=== PATIENT | male | born 1965 | race Caucasian/White ===

== ENCOUNTER 2018-04-23 21:02 | Emergency (ER) | payer SELFPAY ==
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
[2018-04-23 21:56] LABS: CHLORIDE,CL 103 mmol/L (98-107); SODIUM,NA 140 mmol/L (136-148)
[2018-04-23 21:59] LABS: ACETAMINOPHEN < 2.0 ug/mL
[2018-04-23] MEDS ORDERED: cefTRIAXone 2 GM in Premix Bag 1 BAG IV ONE (22:15)
[2018-04-23] MEDS ORDERED: Diphtheria,Pertussis(Acell),Tetanus Vaccine 0.5 ML Syringe IM ONE (22:16)
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
== END 2018-04-23 23:00 ==
LOC: MW.ED 21:02
DX: S01.80XA Unspecified open wound of other part of head, initial encounter (principal); X74.01XA Intentional self-harm by airgun, initial encounter; F32.9 Major depressive disorder, single episode, unspecified; F19.10 Other psychoactive substance abuse, uncomplicated
CPT/HCPCS: 36415; 70450; 80053; 80305; 81001; 83735; 84443; 85025; 90471; 90715; 93005; 96365; 96368; 99285; G0480; J0690; J0696; J7050

== ENCOUNTER 2020-01-21 22:13 | Emergency (ER) | payer MEDICAID ==
[2020-01-21] MEDS ORDERED: Dexamethasone 10 MG/ML SDV IM ONE (22:35)
[2020-01-21] MEDS ORDERED: Ketorolac 15 MG/ML SDV IM ONE (22:35)
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
--- NOTE | 2020-01-21 23:23 | CR ---
INDICATION: Right pain, back pain, chronic TECHNIQUE: Lumbar spine radiograph 3 views COMPARISON: None FINDINGS: Bone: No acute fractures or aggressive bone lesions are identified. Alignment is normal. Large marginal endplate osteophytes are present at L1 through L3. Disc: See above. Severe bilateral facet osteoarthritis is present at L5-S1. Soft tissue: Unremarkable. No radiopaque foreign bodies are seen. IMPRESSION: 1. No acute osseous injuries or abnormalities are noted. Dictated by Eliu Benavidez MD @ 01/21/2020 11:22:58 PM Dictated by: Eliu Benavidez MD @ 01/21/2020 23:23:07 (Electronically Signed)
--- NOTE | 2020-01-21 23:26 | CR ---
INDICATION: Right pelvic and hip pain, back pain, chronic TECHNIQUE: Pelvis radiograph, Hip radiograph 4 views right COMPARISON: None FINDINGS: Bone: No acute fractures or aggressive bone lesions are identified. Joint: Mild bilateral hip osteoarthritis noted. The visualized sacroiliac joints are unremarkable in appearance. The pubic symphysis is normal in appearance. Soft tissue: Unremarkable. The visualized bowel gas pattern of the pelvis is unremarkable in appearance. No radiopaque foreign bodies are seen. IMPRESSION: 1. No acute osseous injuries or abnormalities are noted. 2. Mild bilateral hip osteoarthritis noted. Dictated by: Eliu Benavidez MD @ 01/21/2020 23:24:46 (Electronically Signed)
[2020-01-22] MEDS ORDERED: Acetaminophen/HYDROcodone 325-5 MG Tab PO ONE (00:37)
== END 2020-01-22 01:20 | disposition home or self-care (01) ==
LOC: MW.ED 22:13
DX: M54.16 Radiculopathy, lumbar region (principal)
CPT/HCPCS: 72100; 73502; 96372; 99283; A9270; J1100; J1885

== ENCOUNTER 2020-01-26 18:21 | Emergency (ER) | payer MEDICAID ==
[2020-01-26] MEDS ORDERED: HYDROmorphone 1 MG/ML Syringe IVPUSH ONE (18:54)
[2020-01-26] MEDS ORDERED: Ondansetron 4 MG/2 ML SDV IVPUSH ONE (18:54)
[2020-01-26] MEDS ORDERED: methylPREDNISolone Sodium Succinate 125 MG/2 ML SDV IVPUSH ONE (18:54)
--- NOTE | 2020-01-26 18:54 | EDM.PDOC ---
ED HPI GENERAL MEDICAL PROBLEM - General Chief Complaint: Back Pain or Injury Stated Complaint: BACK PAIN Time Seen by Provider: 01/26/20 18:45 Source of Information: Reports: Patient History Limitations: Reports: No Limitations - History of Present Illness INITIAL COMMENTS - FREE TEXT/NARRATIVE: HISTORY AND PHYSICAL: History of present illness: Patient is a 54-year-old male who presents to the emergency room with complaints of chronic back pain. Patient has been suffering for several years with chronic lumbar back pain, but seems worse within the last month. He has had full work- ups including MRI and x-ray. He was recently seen in our emergency department and was prescribed Flexeril and ibuprofen, states that this medication has not helped. He did receive some steroids while he was in the emergency department and states he felt well enough to be discharged home at that time. He has an appointment with the Dr Lopez, the pain coordinator, on 02/11/2020 - but "can't wait that long" for relief. He states the pain is not tolerable and will occasionally send "jolts" of pain down both legs and down both arms. He denies any new injury, trauma or falls. He denies any neurological symptoms such as urinary or fecal incontinence, numbness/tingling of the distal extremities, saddle paresthesia, weakness or difficulty with ambulation. Patient denies any fever, chills, headache, change in vision, syncope or near syncope. Denies any chest pain, back pain, shortness of breath or cough. Denies any abdominal pain, nausea, vomiting, diarrhea, constipation or dysuria. Has not noted any blood in urine or stool. Patient has been eating and drinking appropriately. Review of systems: As per history of present illness and below otherwise all systems reviewed and negative. Past medical history: As per history of present illness and as reviewed below otherwise noncontributory. Surgical history: As per history of present illness and as reviewed below otherwise noncontributory. Social history: See social history for further information Family history: As per history of present illness and as reviewed below otherwise noncontributory. Physical exam: General: Chronically ill appearing 54-year-old male. Alert and oriented. Anxious but nontoxic appearing and in no acute distress. HEENT: Atraumatic, normocephalic, pupils equal and reactive bilaterally, negative for conjunctival pallor or scleral icterus, mucous membranes moist, TMs normal bilaterally, throat clear, neck supple, nontender, trachea midline. No drooling or trismus noted. No meningeal signs. No hot potato voice noted. Lungs: Clear to auscultation, breath sounds equal bilaterally, chest nontender. Heart: S1S2, regular rate and rhythm without overt murmur Abdomen: Soft, nondistended, nontender. Negative for masses or hepatosplenomegaly. Negative for costovertebral tenderness. Pelvis: Stable nontender. Genitourinary: Deferred. Rectal: Deferred. C-spine/Back: No pinpoint vertebral tenderness upon palpation. No crepitus, step-offs or obvious deformities. Patient does have lumbar back discomfort with the paraspinous muscles early. Patient is ambulatory into the emergency room without difficulty or deficit. Able to rock back on heels and walk on toes. Denies any urinary or fecal incontinence. Denies any numbness, tingling or saddle paresthesia. No concerns of serious infection, fracture or cord compression, or cauda equina syndrome. Deep tendon reflexes brisk bilaterally. Skin: Intact, warm, dry. No lesions or rashes noted. Extremities: Atraumatic, moves all extremities per self without difficulty or deficits, negative for cords or calf pain. Neurovascular unremarkable. Neuro: Awake, alert, oriented. Cranial nerves II through XII unremarkable. Cerebellum unremarkable. Motor and sensory unremarkable throughout. Exam nonfocal. Notes: 01/01/20 recent MRI showing multilevel DJD and DDD. Lumbar x-ray on 01/21/20 shows diffuse arthritis. He does have an upcoming pain management appointment and scheduled physical therapy for next month. Patient declines wanting any diagnostics. He states the pain is not new or worse than before, but not managed with the medications he is taking. On secondary reevaluation is within normal limits, no neurological findings, reflexes brisk and intact. Patient's pain is much improved after the IV medications. We discussed signs and symptoms that would prompt him to come back to the emergency room. Encouraged him to call Dr. Carrasco's office to see if he can get his appointment expedited. Medication, follow-up and supportive care measures were reviewed and discussed. Voices understanding and is agreeable to plan of care. Denies any further questions or concerns at this time. Diagnostics: None Therapeutics: Dilaudid, Zofran, IV fluids Prescription: Percocet (#30) Impression: Chronic back pain Encounter for pain management Plan: 1. The medication you received today does cause drowsiness, so do not drive for the remaining day 2. When resting please lay on a flat firm surface. Limit your immobility to prevent muscle stiffness. Get up to ambulate/move around/gentle stretching multiple times throughout the day. May alternate heat and ice to the painful areas 3. Take your home medications as directed. Percocet is a narcotic, this medication may cause drowsiness a do not take it will driving her needing to be functioning outside of the house. 4. Please follow-up with your primary care provider and keep your appointment with Dr Campo for 02/11/2020. It would be beneficial to call our office and see if you can get an expedited appointment as you have been seen in the emergency room twice this month. 5. Return to the ED as needed and as discussed. Definitive disposition and diagnosis as appropriate pending reevaluation and review of above. lower back Pain Score (Numeric/FACES): 9 - Related Data Allergies Allergy/AdvReac Type Severity Reaction Status Date / Time No Known Allergies Allergy Verified 01/26/20 18:44 Home Meds: Home Meds Cyclobenzaprine [Flexeril] 10 mg PO TID PRN #15 tab 01/22/20 [Rx] Ibuprofen 600 mg PO Q8H #30 tablet 01/22/20 [Rx] predniSONE [Prednisone] 60 mg PO DAILY 5 Days #15 tablet 01/22/20 [Rx] oxyCODONE HCl/Acetaminophen [Percocet 7.5-325 mg Tablet] 1 each PO Q6HR PRN #30 tablet 01/26/20 [Rx] Past Medical History HEENT History: Reports: None Cardiovascular History: Reports: None Respiratory History: Reports: None Gastrointestinal History: Reports: None Genitourinary History: Reports: None Neurological History: Reports: None Psychiatric History: Reports: None Endocrine/Metabolic History: Reports: None Hematologic History: Reports: None Immunologic History: Reports: None Oncologic (Cancer) History: Reports: None Dermatologic History: Reports: None - Infectious Disease History Infectious Disease History: Reports: None - Past Surgical History Head Surgeries/Procedures: Reports: None Other Musculoskeletal Surgeries/Procedures:: back Social & Family History - Family History Family Medical History: Noncontributory - Tobacco Use Smoking Status *Q: Current Every Day Smoker Years of Tobacco use: 1 Packs/Tins Daily: 15 - Caffeine Use Caffeine Use: Reports: Soda - Recreational Drug Use Recreational Drug Use: No ED ROS GENERAL - Review of Systems Review Of Systems: Comprehensive ROS is negative, except as noted in HPI. ED EXAM,LOWER BACK PAIN/INJURY - Physical Exam Exam: See Below (See dictation) Course - Vital Signs Last Recorded V/S: Last Vital Signs Temp 98.0 F 01/26/20 18:45 Pulse 82 01/26/20 19:45 Resp 18 01/26/20 19:45 BP 137/84 01/26/20 19:45 Pulse Ox 94 L 01/26/20 19:45 - Orders/Labs/Meds Orders: Active Orders 24 hr Category Date Time Status Sodium Chloride 0.9% [Normal Saline] 1,000 ml Med 01/26/20 18:58 Active IV STAT Medication Orders Sodium Chloride (Normal Saline) 1,000 mls @ 999 mls/hr IV STAT ONE Stop: 01/26/20 19:58 Last Admin: 01/26/20 19:04 Dose: 999 mls/hr Documented by: FERNANDO Meds: Medications Generic Name Dose Route Start Last Admin Trade Name Freq PRN Reason Stop Dose Admin Sodium Chloride 1,000 mls @ 999 mls/hr 01/26/20 18:58 01/26/20 19:04 Normal Saline IV 01/26/20 19:58 999 mls/hr STAT ONE Administration Discontinued Medications Generic Name Dose Route Start Last Admin Trade Name Freq PRN Reason Stop Dose Admin Hydromorphone HCl 1 mg 01/26/20 18:54 01/26/20 19:05 Dilaudid IVPUSH 01/26/20 18:55 1 mg ONETIME ONE Administration Methylprednisolone Sodium Succinate 125 mg 01/26/20 18:54 01/26/20 19:05 Solu-Medrol IVPUSH 01/26/20 18:55 125 mg ONETIME ONE Administration Ondansetron HCl 4 mg 01/26/20 18:54 01/26/20 19:05 Zofran IVPUSH 01/26/20 18:55 4 mg ONETIME ONE Administration Departure - Departure Time of Disposition: 19:54 Disposition: Home, Self-Care 01 Clinical Impression: Encounter for pain management Chronic back pain Qualifiers: Back pain location: low back pain Back pain laterality: bilateral Sciatica presence: with sciatica Sciatica laterality: bilateral sciatica Qualified Code(s): M54.42 - Lumbago with sciatica, left side; M54.41 - Lumbago with sciatica, right side; G89.29 - Other chronic pain - Discharge Information Prescriptions: oxyCODONE HCl/Acetaminophen [Percocet 7.5-325 mg Tablet] 1 each PO Q6HR PRN #30 tablet PRN Reason: Pain Instructions: Chronic Back Pain, [id number] Referrals: PCP,None [Primary Care Provider] - Forms: ED Department Discharge Additional Instructions: The following information is given to patients seen in the emergency department who are being discharged to home. This information is to outline your options for follow-up care. We provide all patients seen in our emergency department with a follow-up referral. The need for follow-up, as well as the timing and circumstances, are variable depending upon the specifics of your emergency department visit. If you don't have a primary care physician on staff, we will provide you with a referral. We always advise you to contact your personal physician following an emergency department visit to inform them of the circumstance of the visit and for follow-up with them and/or the need for any referrals to a consulting specialist. The emergency department will also refer you to a specialist when appropriate. T his referral assures that you have the opportunity for follow-up care with a specialist. All of these measure are taken in an effort to provide you with optimal care, which includes your follow-up. Under all circumstances we always encourage you to contact your private physician who remains a resource for coordinating your care. When calling for follow-up care, please make the office aware that this follow-up is from your recent emergency room visit. If for any reason you are refused follow-up, please contact the [facility] Emergency Department at and asked to speak to the emergency department charge nurse. [facility] [address] [place] [id number] [address] 1. The medication you received today does cause drowsiness, so do not drive for the remaining day 2. When resting please lay on a flat firm surface. Limit your immobility to prevent muscle stiffness. Get up to ambulate/move around/gentle stretching multiple times throughout the day. May alternate heat and ice to the painful areas 3. Take your home medications as directed. Percocet is a narcotic, this medication may cause drowsiness a do not take it will driving her needing to be functioning outside of the house. 4. Please follow-up with your primary care provider and keep your appointment with Dr Campo for 02/11/2020. It would be beneficial to call our office and see if you can get an expedited appointment as you have been seen in the emergency room twice this month. 5. Return to the ED as needed and as discussed. Sepsis Event Note (ED) - Evaluation Sepsis Screening Result: No Definite Risk - Focused Exam Vital Signs: Vital Signs Temp Pulse Resp BP Pulse Ox 01/26/20 19:45 82 18 137/84 94 L 01/26/20 18:45 98.0 F 137 H 22 H 149/120 H 95 - My Orders Last 24 Hours: My Active Orders 01/26/20 18:58 Sodium Chloride 0.9% [Normal Saline] 1,000 ml IV STAT - Assessment/Plan Last 24 Hours: My Active Orders 01/26/20 18:58 Sodium Chloride 0.9% [Normal Saline] 1,000 ml IV STAT
[2020-01-26] MEDS ORDERED: Sodium Chloride 0.9% 1,000 ML IV ONE (18:58)
== END 2020-01-26 20:00 | disposition home or self-care (01) ==
LOC: MW.ED 18:21
DX: G89.29 Other chronic pain (principal); M54.41 Lumbago with sciatica, right side; M54.42 Lumbago with sciatica, left side; F17.210 Nicotine dependence, cigarettes, uncomplicated
CPT/HCPCS: 96374; 96375; 99283; J1170; J2405; J2930; J7030

== ENCOUNTER 2020-02-17 11:16 | Day surgery (SDC) | payer MEDICAID ==
[2020-02-17] MEDS ORDERED: Betamethasone Acetate/Betamethasone Sod Phosphate 30 MG/5 ML MDV EPIDUR ONE (12:00)
[2020-02-17] MEDS ORDERED: Iopamidol 200-M 10 ML vial ITHECAL ONE (12:00)
[2020-02-17] MEDS ORDERED: Lidocaine 2% 5 ML SDV INJECT ONE (12:00)
[2020-02-17] MEDS ORDERED: Ropivacaine 0.5% 5 MG/ML 30 ML SDV INJECT ONE (12:00)
--- NOTE | 2020-02-17 15:09 | OR ---
SURGEON: Gerda Campo D.O. DATE OF PROCEDURE: 02/17/2020 PRIMARY SURGEON: Gerda Campo DO ASSISTANTS: OR staff present: 1. Jostin Marin RN. 2. Jovi Burr RN. 3. Cindy Gutierrez RT. WOUND CLASS: I. PREOPERATIVE DIAGNOSES: 1. Lumbar L5-S1 radiculopathy. 2. Chronic low back pain. 3. Lumbar degenerative disk disease. POSTOPERATIVE DIAGNOSES: 1. Lumbar L5-S1 radiculopathy. 2. Chronic low back pain. 3. Lumbar degenerative disk disease. PROCEDURES PERFORMED: 1. Left S1 transforaminal epidural steroid injection. 2. Fluoroscopic guidance for needle placement. 3. Local with oral Valium for sedation. SCREENING QUESTIONS: The patient answered "no" to all of the following questions: 1. Are you allergic to iodine, Betadine or latex? 2. Do you have a bleeding disorder? 3. Do you have any joint replacements, heart valve replacements, or a pacemaker? 4. Are you allergic to anti-inflammatories or blood thinners? 5. Do you have any current local or systemic infections? MEDICAL NECESSITY: This is a patient with a history of chronic low back pain and lower extremity radicular pain in the above dermatomal pattern that comes in for the above diagnostic and therapeutic procedure. Pertinent positives and negatives for this suspected disease process along with the diagnostic findings and testing are in the patient's history and physical exam. The most salient feature includes radicular pain in the above dermatomal pattern. The patient had failed attempts at conservative therapy including physical therapy, nonsteroidal anti- inflammatory drugs, and other medications. No contraindications to perform this procedure including medical, no bleeding disorders or infections, no psychological, no antisocial personality disorder or active addiction disorder. There are no work-related issues, and, in general, the patient does not have any history of multiple prior interventions, surgeries or nerve blocks which have failed to return the patient to function. The patient's other symptoms to be treated include numbness, paresthesia, dysesthesia or hypoesthesia referred into the left lower extremity or any weakness in the involved myotome. This procedure is being performed in accordance with national guidelines as written by the [employer] (JANES). DESCRIPTION OF PROCEDURE: The patient had the procedure thoroughly explained including risks, benefits and alternatives. Consent was signed in my clinic indicating understanding and willingness to proceed. The patient presented to [facility] [place] where the patient was escorted to the dressing room to disrobe and change into a hospital gown. Preoperative vital signs were taken and stable. The patient reported that Valium was taken prior to the procedure. The patient was brought to the procedure room and placed in the prone position on the table. A pillow was placed under the abdomen in order to flatten the lumbar lordosis. The back was prepped with ChloraPrep and sterilely draped. All personnel in the operating room were dressed in appropriate attire including surgical scrubs, head and shoe covers. This was to ensure sterility while in the treatment room. During the time fluoroscopy was in use, all personnel in the operating room wore lead ortega with thyroid collars. Sterile technique was used during the procedure. The fluoroscope was placed for the left S1 transforaminal epidural steroid injection. There was no sign of infection at the skin site for needle insertion. The skin was anesthetized with 2% lidocaine with a 27 gauge 1-1/2 inch needle. Then, a 22 gauge 3-1/2 inch spinal needle, advanced to the left S1. Under direct fluoroscopic guidance needle position was verified in three views; AP, oblique and lateral, with 0.2 cubic centimeters increments of Isovue- 200 dye. No intravascular flow pattern was observed under live fluoroscopy. Then 12 milligrams of Celestone was slowly injected after negative aspiration of heme, cerebrospinal fluid and no paresthesias were noted. The needle was cleared prior to removal from the skin. No adverse reactions were noted. The patient was brought to the recovery room awake and in good condition by my staff. The patient was monitored and discharge instructions were given after a brief stay in the recovery area. Both oral and written discharge and follow up instructions were given. The patient will follow up in the clinic in 3-4 weeks post procedure to evaluate the efficacy. The patient verbalized understanding including understanding of those signs and symptoms that would require emergency care and knows how to contact the office if there are any problems or questions in the meantime. PREOPERATIVE PAIN: /10. POSTOPERATIVE PAIN: 09/08. FOLLOWUP: In the Pain Clinic in 3 weeks. HOGLCHR / MODL /[id number] YOEL
== END 2020-02-17 12:50 | disposition home or self-care (01) ==
LOC: MW.SDS 11:16
PROVIDERS: ATTEND Anesthesiology
DX: G89.29 Other chronic pain (principal); M51.17 Intervertebral disc disorders with radiculopathy, lumbosacral region; M47.27 Other spondylosis with radiculopathy, lumbosacral region; M48.061 Spinal stenosis, lumbar region without neurogenic claudication; M47.26 Other spondylosis with radiculopathy, lumbar region; M79.18 Myalgia, other site
CPT/HCPCS: J0702; J2001; J2795; Q9966

== ENCOUNTER 2020-03-02 12:05 | Day surgery (SDC) | payer MEDICAID ==
[2020-03-02] MEDS ORDERED: Betamethasone Acetate/Betamethasone Sod Phosphate 30 MG/5 ML MDV EPIDUR ONE (14:00)
[2020-03-02] MEDS ORDERED: Iopamidol 200-M 10 ML vial ITHECAL ONE (14:00)
[2020-03-02] MEDS ORDERED: Lidocaine 2% 5 ML SDV INJECT ONE (14:00)
[2020-03-02] MEDS ORDERED: Ropivacaine 0.5% 5 MG/ML 30 ML SDV INJECT ONE (14:00)
--- NOTE | 2020-03-02 18:10 | OR ---
SURGEON: Gerda Campo D.O. DATE OF PROCEDURE: 03/02/2020 PRIMARY SURGEON: Gerda Campo DO ASSISTANTS: OR staff present: 1. Kaushal Holm, RT. 2. Ling Rosario RN. 3. Jovi Burr RN. WOUND CLASS: I. PREOPERATIVE DIAGNOSES: 1. Lumbar degenerative disk disease; L3-4, L4-5, L5-S1. 2. Bilateral L3 radiculopathy. POSTOPERATIVE DIAGNOSES: 1. Lumbar degenerative disk disease; L3-4, L4-5, L5-S1. 2. Bilateral L3 radiculopathy. PROCEDURES PERFORMED: 1. Right L3 transforaminal epidural steroid injection. 2. Left L3 transforaminal epidural steroid injection. 3. Fluoroscopic guidance for needle placement. 4. Local with oral Valium for sedation. SCREENING QUESTIONS: The patient answered "no" to all of the following questions: 1. Are you allergic to iodine, Betadine or latex? 2. Do you have a bleeding disorder? 3. Do you have any joint replacements, heart valve replacements, or a pacemaker? 4. Are you allergic to anti-inflammatories or blood thinners? 5. Do you have any current local or systemic infections? DESCRIPTION OF PROCEDURE: The patient had the procedure thoroughly explained including risks, benefits and alternatives. Consent was signed in my clinic indicating understanding and willingness to proceed. The patient presented to [facility] [place] where the patient was escorted to the dressing room to disrobe and change into a hospital gown. Preoperative vital signs were taken and stable. The patient reported that Valium was taken prior to the procedure. The patient was brought to the procedure room and placed in the prone position on the table. A pillow was placed under the abdomen in order to flatten the lumbar lordosis. The back was prepped with ChloraPrep and sterilely draped. All personnel in the operating room were dressed in appropriate attire including surgical scrubs, head and shoe covers. This was to ensure sterility while in the treatment room. During the time fluoroscopy was in use, all personnel in the operating room wore lead ortega with thyroid collars. Sterile technique was used during the procedure. The fluoroscope was placed for the right L3 TFESI, transforaminal epidural steroid injection. There was no sign of infection at the skin site for needle insertion. The skin was anesthetized with 2% lidocaine with a 27 gauge 1-1/2 inch needle. Then, a 22 gauge 3-1/2 inch spinal needle, advanced to the right L3 . Under direct fluoroscopic guidance needle position was verified in three views; AP, oblique and lateral, with 0.2 cubic centimeters increments of Isovue-200 dye. No intravascular flow pattern was observed under live fluoroscopy. Then 6 milligrams of Celestone was slowly injected after negative aspiration of heme, cerebrospinal fluid and no paresthesias were noted. The needle was cleared prior to removal from the skin. The procedure was repeated as above for the left L3 TFESI. No adverse reactions were noted. The patient was brought to the recovery room awake and in good condition by my staff. The patient was monitored and discharge instructions were given after a brief stay in the recovery area. Both oral and written discharge and follow up instructions were given. The patient will follow up in the clinic in 3-4 weeks post procedure to evaluate the efficacy. The patient verbalized understanding including understanding of those signs and symptoms that would require emergency care and knows how to contact the office if there are any problems or questions in the meantime. PREOPERATIVE PAIN: 8/10. POSTOPERATIVE PAIN: 5/10. FOLLOWUP: In the Pain Clinic in 3 weeks. KIM / GALO /[id number] YOEL
== END 2020-03-02 14:05 | disposition home or self-care (01) ==
LOC: MW.SDS 12:05
PROVIDERS: ATTEND Anesthesiology
DX: M51.16 Intervertebral disc disorders with radiculopathy, lumbar region (principal); M48.061 Spinal stenosis, lumbar region without neurogenic claudication; M47.27 Other spondylosis with radiculopathy, lumbosacral region; F17.200 Nicotine dependence, unspecified, uncomplicated; I10 Essential (primary) hypertension; F32.9 Major depressive disorder, single episode, unspecified; Z79.899 Other long term (current) drug therapy
CPT/HCPCS: 64483; J0702; J2001; J2795; Q9966

== ENCOUNTER 2020-03-25 12:31 | Day surgery (SDC) | payer MEDICAID ==
[~2020-03-25 12:31] MED LIST: Betamethasone Acetate/Betamethasone Sod Phosphate 30 MG/5 ML MDV EPIDUR ONE; Iopamidol 200-M 10 ML vial ITHECAL ONE; Lidocaine 2% 5 ML SDV INJECT ONE; Ropivacaine 0.5% 5 MG/ML 30 ML SDV INJECT ONE
--- NOTE | 2020-03-25 15:41 | OR ---
SURGEON: Gerda Campo D.O. DATE OF PROCEDURE: 03/25/2020 PRIMARY SURGEON: Gerda Campo DO ASSISTANTS: OR staff present: 1. Ling Rosario RN. 2. Jostin Arriaga RN. 3. Cindy Gutierrez RT. WOUND CLASS: I. PREOPERATIVE DIAGNOSES: 1. Chronic low back pain. 2. Lumbar spondylosis. 3. Lumbar degenerative disk disease. POSTOPERATIVE DIAGNOSES: 1. Chronic low back pain. 2. Lumbar spondylosis. 3. Lumbar degenerative disk disease. PROCEDURES PERFORMED: 1. Right L4 and right L5 diagnostic medial branch blocks. 2. Left L4 and left L5 diagnostic medial branch blocks. 3. Fluoroscopic guidance for needle placement. 4. Local with oral Valium for sedation. SCREENING QUESTIONS: The patient answered "No" to all the following questions: 1. Are you allergic to iodine, Betadine or latex? 2. Do you have a bleeding disorder? 3. Are you on anti-inflammatories or blood thinners? 4. Do you have any current local or systemic infections? MEDICAL NECESSITY: This is a patient with chronic low back pain who comes in for the above diagnostic procedure. This procedure is being performed in accordance with national guidelines written by the [employer]; please see medical necessity note in chart. DESCRIPTION OF PROCEDURE: The patient had the procedure thoroughly explained including risks, benefits and alternatives. Consent was signed in my clinic indicating understanding and willingness to proceed. The patient presented to [facility] and was escorted to the dressing room to disrobe and change into a hospital gown. Preoperative history and screening were performed by my nurse. Vital signs were taken and stable. The patient reported that Valium 10 milligrams was taken prior to the procedure. The patient was brought back to the procedure room and placed in the prone position on the procedure room table. A pillow was placed under the abdomen in order to flatten the lumbar lordosis. The back was prepped with ChloraPrep and sterilely draped. All personnel in the procedure room were dressed in appropriate attire including surgical scrubs, head and shoe covers. This was to ensure sterility while in the treatment room. During the time fluoroscopy was in use all personnel in the operating room wore lead ortgea with thyroid collars. Sterile technique was used during the procedure. Then the fluoroscope was positioned to provide a right oblique view for the right L4 medial branch. This was begun by anesthetizing the skin and soft tissues. The fluoroscope was positioned and a sterile 22-gauge 3.5 inch needle was placed at the junction of the transverse process in the superior articular process of the L5 vertebral body. Precise needle placement was confirmed by fluoroscopy. Then 0.2 cubic centimeters of IsoVue-200 contrast dye was injected through microbore tubing under live fluoroscopy and showed no intravascular flow pattern and adequate flow over the target medial branch. After negative aspiration, 0.5 cubic centimeters of 0.5% Ropivacaine was injected without complications. The fluoroscope was then positioned to provide a right L5 dorsal ramus block. This was begun by anesthetizing the skin and soft tissues over the right sacral sulcus. Then using fluoroscopic guidance, a sterile 22-gauge 3.5 inch spinal needle was positioned at the right sacral ala. Precise needle placement was confirmed by fluoroscopy in AP and oblique views, and 0.2 cubic centimeters of IsoVue-200 contrast dye was injected through microbore tubing under live fluoroscopy and showed no intravascular flow pattern and adequate flow over the target nerves. After negative aspiration, 0.5 cubic centimeters of 0.5% Ropivacaine was injected. No complications were noted. The fluoroscope was positioned then to provide a left L4 medial branch block. The skin was anesthetized. Then a 22-gauge 3.5 inch spinal needle was positioned at the junction of the transverse process in the superior articular process of the L5 vertebral body on the left. Precise needle placement was confirmed by fluoroscopy and with 0.2 cubic centimeters of IsoVue-200 contrast dye injected through microbore tubing showing no intravascular flow pattern and adequate flow over the target medial branch of L4 on the left. Then 0.5 cubic centimeters of 0.5% Ropivacaine was injected after negative aspiration without complications. Then the fluoroscope was positioned for the left L5 dorsal ramus block. This was begun by anesthetizing the skin and soft tissues. Then with fluoroscopic guidance a sterile 22-gauge 3.5 inch spinal needle was positioned at the left sacral ala. Precise needle placement was confirmed with 0.2 cubic centimeters of IsoVue-200 contrast dye injected through microbore tubing under live fluoroscopy showing no intravascular flow pattern and adequate flow over the target L5 nerve. Then 0.5 cubic centimeters of 0.5% Ropivacaine was injected after negative aspiration without complications. The procedure was well tolerated and vital signs were stable during and after the procedure. The staff escorted the patient to the recovery area. The patient was given both oral and written discharge and followup instructions. The patient will follow up with a pain diary which will be evaluated over this evening doing things that would normally cause pain. We will evaluate the efficacy of the diagnostic lumbar medial branch blocks as the patient will follow up in the clinic the next day. The patient was given both oral and written discharge and followup instructions. The patient voiced understanding including understanding of those signs and symptoms that would require emergency care and knows how to contact the office if there are any questions or concerns in the meantime. PREOPERATIVE PAIN: /10. POSTOPERATIVE PAIN: 08/08. FOLLOWUP: In the Pain Clinic with pain diary in the morning. KIM / GALO /[id number]
== END 2020-03-25 14:30 | disposition home or self-care (01) ==
LOC: MW.SDS 12:31
PROVIDERS: ATTEND Anesthesiology
DX: G89.29 Other chronic pain (principal); M47.26 Other spondylosis with radiculopathy, lumbar region; M48.061 Spinal stenosis, lumbar region without neurogenic claudication; M51.16 Intervertebral disc disorders with radiculopathy, lumbar region; M79.18 Myalgia, other site; F17.200 Nicotine dependence, unspecified, uncomplicated

== ENCOUNTER 2020-04-15 11:05 | Day surgery (SDC) | payer MEDICAID ==
[2020-04-15] MEDS ORDERED: Iopamidol 200-M 10 ML vial ITHECAL ONE (13:00)
[2020-04-15] MEDS ORDERED: Betamethasone Acetate/Betamethasone Sod Phosphate 30 MG/5 ML MDV EPIDUR ONE (13:00)
[2020-04-15] MEDS ORDERED: Lidocaine 2% 5 ML SDV INJECT ONE (13:00)
[2020-04-15] MEDS ORDERED: Ropivacaine 0.5% 5 MG/ML 30 ML SDV INJECT ONE (13:00)
--- NOTE | 2020-04-15 22:28 | OR ---
SURGEON: Gerda Campo D.O. DATE OF PROCEDURE: 04/15/2020 PRIMARY SURGEON: Gerda Campo DO ASSISTANTS: OR staff present: 1. Ling Rosario RN. 2. Ferny Almonte RN. 3. Ling Romano RT. WOUND CLASS: I. PREOPERATIVE DIAGNOSES: 1. L3-4 degenerative disk disease. 2. L4-5 degenerative disk disease. 3. Right lower extremity radiculopathy. 4. Chronic low back pain. 5. Multilevel lumbar spondylosis, lumbar spinal stenosis. POSTOPERATIVE DIAGNOSES: 1. L3-4 degenerative disk disease. 2. L4-5 degenerative disk disease. 3. Right lower extremity radiculopathy. 4. Chronic low back pain. 5. Multilevel lumbar spondylosis, lumbar spinal stenosis. PROCEDURES PERFORMED: 1. Right L3 transforaminal epidural steroid injection. 2. Right S1 transforaminal epidural steroid injection. 3. Fluoroscopic guidance for needle placement. 4. Local with oral Valium for sedation. SCREENING QUESTIONS: The patient answered "no" to all of the following questions: 1. Are you allergic to iodine, Betadine or latex? 2. Do you have a bleeding disorder? 3. Do you have any joint replacements, heart valve replacements, or a pacemaker? 4. Are you allergic to anti-inflammatories or blood thinners? 5. Do you have any current local or systemic infections? DESCRIPTION OF PROCEDURE: The patient had the procedure thoroughly explained including risks, benefits and alternatives. Consent was signed in my clinic indicating understanding and willingness to proceed. The patient presented to [facility] where the patient was escorted to the dressing room to disrobe and change into a hospital gown. Preoperative vital signs were taken and stable. The patient reported that Valium was taken prior to the procedure. The patient was brought to the procedure room and placed in the prone position on the table. A pillow was placed under the abdomen in order to flatten the lumbar lordosis. The back was prepped with ChloraPrep and sterilely draped. All personnel in the operating room were dressed in appropriate attire including surgical scrubs, head and shoe covers. This was to ensure sterility while in the treatment room. During the time fluoroscopy was in use, all personnel in the operating room wore lead ortega with thyroid collars. Sterile technique was used during the procedure.The fluoroscope was placed for the right L3 transforaminal epidural steroid injection. There was no sign of infection at the skin site for needle insertion. The skin was anesthetized with 2% lidocaine with a 27 gauge 1-1/2 inch needle. Then, a 22 gauge 3-1/2 inch spinal needle, advanced to the right L3 foramen. Under direct fluoroscopic guidance needle position was verified in three views; AP, oblique and lateral, with 0.2 cubic centimeters increments of Isovue-200 dye. No intravascular flow pattern was observed under live fluoroscopy. Then 6 milligrams of Celestone and local was slowly injected after negative aspiration of heme, cerebrospinal fluid and no paresthesias were noted. The needle was cleared prior to removal from the skin. The procedure was repeated as above for the right S1 transforaminal epidural with no complications. No adverse reactions were noted. The patient was brought to the recovery room awake and in good condition by my staff. The patient was monitored and discharge instructions were given after a brief stay in the recovery area. Both oral and written discharge and follow up instructions were given. The patient will follow up in the clinic in 3-4 weeks post procedure to evaluate the efficacy. The patient verbalized understanding including understanding of those signs and symptoms that would require emergency care and knows how to contact the office if there are any problems or questions in the meantime. PREOPERATIVE PAIN: 7/10. POSTOPERATIVE PAIN: 2/10. FOLLOWUP: In the Pain Clinic in 1 month. KIM / GALO /[id number] YOEL
== END 2020-04-15 13:10 | disposition home or self-care (01) ==
LOC: MW.SDS 11:05
PROVIDERS: ATTEND Anesthesiology
DX: G89.29 Other chronic pain (principal); M51.16 Intervertebral disc disorders with radiculopathy, lumbar region; M48.061 Spinal stenosis, lumbar region without neurogenic claudication; F17.200 Nicotine dependence, unspecified, uncomplicated; I10 Essential (primary) hypertension; F32.9 Major depressive disorder, single episode, unspecified; M79.18 Myalgia, other site; M47.27 Other spondylosis with radiculopathy, lumbosacral region; Z79.899 Other long term (current) drug therapy
CPT/HCPCS: 64483; 64484; J0702; J2001; J2795; Q9966

== ENCOUNTER 2020-09-24 21:29 | Emergency (ER) | payer MEDICAID ==
[2020-09-24] MEDS ORDERED: Ketorolac 15 MG/ML SDV IM ONE (21:59)
[2020-09-24] MEDS ORDERED: Lidocaine 5% Oint 35.44 GM Tube TOP ONE (22:42)
--- NOTE | 2020-09-24 22:53 | EDM.PDOC ---
ED HPI GENERAL MEDICAL PROBLEM - General Chief Complaint: Lower Extremity Injury/Pain Stated Complaint: RIGHT HIP PROBLEM Time Seen by Provider: 09/24/20 21:49 - History of Present Illness INITIAL COMMENTS - FREE TEXT/NARRATIVE: CHIEF COMPLAINT(S): Hip pain HISTORY OF PRESENT ILLNESS: This is a 55-year-old man with a past medical history of lumbar radiculopathy and bilateral hip osteoarthritis and chronic back pain who comes to the emergency department with a chief complaint of hip pain. The patient states that his hip is killing him. He states that is been going on for multiple days. He states that it starts in his right hip and radiates to his back. He denies any numbness, tingling, or weakness. He describes the pain as sharp and achy rated 9 out of 10. He denies any bowel incontinence, urinary incontinence, fever, back pain. He denies any IV drug use. He states that he has been using ibuprofen without any relief. He states that touching his right hip exacerbates it but he is able to ambulate. He stat es that he has been getting shots in his hip with Dr. Carrasco however it only lasts approximately 1 day. He denies any other symptoms. REVIEW OF SYSTEMS: Constitutional: Denies fever, chills. Gastrointestinal: Denies bowel incontinence Genitourinary: Denies urinary incontinence Skin:Denies a rash MSK: Positive for right hip pain Neurological: Denies numbness, tingling, weakness PAST MEDICAL HISTORY: As per history of present illness and as reviewed below otherwise noncontributory. SURGICAL HISTORY: As per history of present illness and as reviewed below otherwise noncontributory. SOCIAL HISTORY: As per history of present illness and as reviewed below otherwise noncontributory. FAMILY HISTORY: As per history of present illness and as reviewed below otherwise noncontributory. EXAMINATION OF ORGAN SYSTEMS/BODY AREAS: Constitutional: Blood pressure is 145/93, heart rate 91, respiratory rate 16 with an oxygen saturation of 96% on room air. Temperature 37.3 General: Middle-aged man who does appear to be in a moderate amount of pain. Psychiatric: Appropriate mood and affect. Eyes: No scleral icterus or conjunctival erythema Cardiovascular: Regular, rate, and rhythm. No gallops, murmurs, or rubs. Bilateral upper extremity pulses symmetric and intact. No peripheral edema. No JVD. Respiratory: Lungs clear to auscultation bilaterally. No wheezes, rales, or rhonchi. Musculoskeletal: The patient has full range of motion of the right hip, left hip. The patient is able to bear weight. There is tenderness to palpation along the right hip. No swelling or warmth appreciated. Skin: No lesions or abrasions. Neurological: Alert, GCS 15 distal sensation is intact MEDICAL DECISION MAKING AND COURSE IN THE ED WITH INTERPRETATION/REVIEW OF DIAGNOSTIC STUDIES: This is a 55-year-old man with a past medical history of chronic back pain, lumbar radiculopathy, and bilateral hip osteoarthritis who comes to the emergency department with acute on chronic right hip pain. I did review the patient's chart and he did have a hip x-ray which revealed severe osteoarthritis of the right hip. At this time we will provide the patient with a Toradol shot for pain relief. I do not believe repeat imaging is indicated at this time. I do not not believe any other labs or imaging are indicated. We will reevaluate the patient for symptomatic relief. After period of observation the patient did appear to be in less pain however did report continued pain. I did discuss with him at this time that given the osteoarthritis treatment with ibuprofen is indicated. I did discuss with him that he could use [id number] Voltaren cream for additional pain relief. He is to ice the area 20 minutes 4 times a day and also discussed that I could provide him with lidocaine cream to be used on the area for additional symptomatic relief. I encouraged the patient to continue visiting Dr. Carrasco for continued pain management and if the pain does not improve, develops fevers or is unable to bear weight he needed to return to the emergency department. Also discussed that he may need an orthopedic evaluation given the severity of his osteoarthritis. He was amenable to discharge at this time and had no further questions. DISPOSITION: The patient was discharged home in stable condition. The patient will follow up with Dr. Carrasco and orthopedics CONDITION: Fair PROCEDURES: None FINAL IMPRESSION(S)/DIAGNOSES: 1. Acute on chronic right hip pain likely secondary to osteoarthritis Dimitri Hylton M.D. R hip pain Pain Score (Numeric/FACES): 8 - Related Data Allergies Allergy/AdvReac Type Severity Reaction Status Date / Time No Known Allergies Allergy Verified 09/24/20 21:40 Home Meds: Home Meds . [Unable to Verify Home Med List] 09/24/20 [History] Past Medical History HEENT History: Reports: None Cardiovascular History: Reports: None, Hypertension Respiratory History: Reports: None, Pneumonia, Recurrent Gastrointestinal History: Reports: None Genitourinary History: Reports: None Neurological History: Reports: None Psychiatric History: Reports: None Endocrine/Metabolic History: Reports: None Hematologic History: Reports: None Immunologic History: Reports: None Oncologic (Cancer) History: Reports: None Dermatologic History: Reports: None - Infectious Disease History Infectious Disease History: Reports: None - Past Surgical History Head Surgeries/Procedures: Reports: None Other Musculoskeletal Surgeries/Procedures:: back sx Social & Family History - Family History Family Medical History: No Pertinent Family History - Caffeine Use Caffeine Use: Reports: Soda - Recreational Drug Use Recreational Drug Type: Reports: Marijuana/Hashish Review of Systems - Review of Systems Review Of Systems: See Below ED EXAM, GENERAL - Physical Exam Exam: See Below Course - Vital Signs Last Recorded V/S: Last Vital Signs Temp 37.3 C 09/24/20 21:43 Pulse 91 09/24/20 21:43 Resp 16 09/24/20 21:43 BP 145/93 H 09/24/20 21:43 Pulse Ox 96 09/24/20 21:43 - Orders/Labs/Meds Meds: Medications Discontinued Medications Generic Name Dose Route Start Last Admin Trade Name [place] PRN Reason Stop Dose Admin Ketorolac Tromethamine 15 mg 09/24/20 21:59 09/24/20 22:06 Toradol IM 09/24/20 22:00 15 mg ONETIME ONE Administration Lidocaine HCl 1 gm 09/24/20 22:42 09/24/20 22:56 Lidocaine 5% TOP 09/24/20 22:43 1 dose ONETIME ONE Administration Lidocaine HCl 1 gm 09/24/20 22:55 09/24/20 22:58 Lidocaine 5% TOP 09/24/20 22:56 Not Given NOW STA Departure - Departure Time of Disposition: 22:52 Disposition: Home, Self-Care 01 Condition: Fair Clinical Impression: Osteoarthritis of right hip Qualifiers: Osteoarthritis type: unspecified Qualified Code(s): M16.11 - Unilateral primary osteoarthritis, right hip - Discharge Information *PRESCRIPTION DRUG MONITORING PROGRAM REVIEWED*: No *COPY OF PRESCRIPTION DRUG MONITORING REPORT IN PATIENT YAW: No Instructions: Osteoarthritis, What You Need to Know About Osteoarthritis, Pain Medicine Instructions, [id number] Referrals: Yolanda Molina MD [Primary Care Provider] - Forms: ED Department Discharge Additional Instructions: You evaluate today on an emergent basis. At this time I do believe your symptoms are likely secondary to the arthritis that is evident on your x-rays from this month. I do recommend continued usage of ibuprofen, diclofenac cream, and Tylenol 500 mg every 6 hours. I do recommend ice to your right and left hip 20 minutes 4 times a day and we did provide you with a lidocaine cream to help symptomatically. At this time it is important that you follow-up with your pain specialist and if you have continued pain please follow-up with orthopedics. If you have any fevers, redness or any other concerns please return to the emergency department. Please use: Tylenol 500-1000mg every 6 hours (DO NOT TAKE MORE THAN 4000mg in 1 day) Ibuprofen 400mg every 6 hours or 800mg every 8 hours (Take with food as it can cause ulcers, GI upset) In addition to Tylenol and Motrin you may use over the counter creams such as Voltaren Cream or Lidocaine Cream (Lidoderm) as needed 4 times a day for symptomatic relief. Ice the area 20 minutes 4 times per day [facility] [address] [place] [address] [facility] [address] [place] [address], [address] [place] [address] The patient is informed of any results of their evaluation and diagnostic workup and all questions are answered. They are given discharge instructions and return precautions. The patient is stable for discharge. The patient states they understand and agree with the plan and that they will return if their symptoms get worse or if they have any new concerns. The following information is given to patients seen in the emergency department who are being discharged to home. This information is to outline your options for follow-up care. We provide all patients seen in our emergency department with a follow-up referral. The need for follow-up, as well as the timing and circumstances, are variable depending upon the specifics of your emergency department visit. If you don't have a primary care physician on staff, we will provide you with a referral. We always advise you to contact your personal physician following an emergency department visit to inform them of the circumstance of the visit and for follow-up with them and/or the need for any referrals to a consulting specialist. The emergency department will also refer you to a specialist when appropriate. This referral assures that you have the opportunity for follow-up care with a specialist. All of these measure are taken in an effort to provide you with optimal care, which includes your follow-up. Under all circumstances we always encourage you to contact your private physician who remains a resource for coordinating your care. When calling for follow-up care, please make the office aware that this follow-up is from your recent emergency room visit. If for any reason you are refused follow-up, please contact the [facility] Emergency Department at and asked to speak to the emergency department charge nurse. Sepsis Event Note (ED) - Evaluation Sepsis Screening Result: No Definite Risk - Focused Exam Vital Signs: Vital Signs Temp Pulse Resp BP Pulse Ox 09/24/20 21:43 37.3 C 91 16 145/93 H 96
[2020-09-24] MEDS ORDERED: Lidocaine 5% Oint 35.44 GM Tube TOP STA (22:55)
== END 2020-09-24 23:08 | disposition home or self-care (01) ==
LOC: MW.ED 21:29
DX: M16.11 Unilateral primary osteoarthritis, right hip (principal); I10 Essential (primary) hypertension
CPT/HCPCS: 96372; 99283; A9270; J1885

== ENCOUNTER 2020-11-11 17:41 | Emergency (ER) | payer MEDICAID ==
--- NOTE | 2020-11-11 18:00 | EDM.PDOC ---
ED HPI GENERAL MEDICAL PROBLEM - General Chief Complaint: General Stated Complaint: BOTH HIPS HURT Time Seen by Provider: 11/11/20 17:42 Source of Information: Reports: Patient History Limitations: Reports: No Limitations - History of Present Illness INITIAL COMMENTS - FREE TEXT/NARRATIVE: My general adult HISTORY AND PHYSICAL: History of present illness: The patient is a 55 year old man with a past medical history of lumbar radiculopathy and bilateral hip osteoarthritis and chronic back pain who comes to the ED with a chief complaint of bilateral hip pain. The patient states that his hips are hurting like a "toothache". He states that he was refereed to an Orthopedic for an "injection" for pain and was to see him today but when he showed up for his appointment he was unable to get in. Dr. Campo gave the patient Oxycodone/APAP on 10-13-2020 to control the pain until he could see the Orthopedic. He did have an MRI of bilateral hips on October 14, 2020. He has a decrease appetite. Patient denies any fever, chills, headache, change in vision, syncope or near syncope. Denies any chest pain, back pain, shortness of breath or cough. Denies any abdominal pain, nausea, vomiting, diarrhea, constipation or dysuria. Has not noted any blood in urine or stool. Review of systems: As per history of present illness and below otherwise all systems reviewed and negative. Past medical history: As per history of present illness and as reviewed below otherwise noncontributory. Surgical history: As per history of present illness and as reviewed below otherwise noncontributory. Social history: See social history for further information Family history: As per history of present illness and as reviewed below otherwise noncontributory. Physical exam: General: Well developed and well nourished. Alert and orientated x 3. Nontoxic in appearance and in no acute distress. Vital signs are stable and have been reviewed by me. Nursing notes were reviewed. HEENT: Atraumatic, normocephalic, pupils equal and reactive bilaterally, negative for conjunctival pallor or scleral icterus, mucous membranes moist, TMs normal bilaterally, throat clear, neck supple, nontender, trachea midline. No drooling or trismus noted. No meningeal signs. No hot potato voice noted. Lungs: Clear to auscultation bilaterally. No wheezes, rales, or rhonchi. Chest nontender. Normal work of breathing, no accessory muscles used. Heart: S1S2, regular rate and rhythm without overt murmur, gallops, or rubs. No JVD. No peripheral edema Abdomen: Soft, nondistended, nontender. Normoactive bowel sounds. Negative for masses or costovertebral tenderness. Pelvis: Tender with palpation and movement. Skin: Intact, warm, dry. No lesions or rashes noted. Hematologic: No petechiae or purpra. Mucosa appropriate color and normal nail bed color and refill. Extremities: Atraumatic, moves all extremities per self without difficulty or deficits, negative for cords or calf pain. Neurovascular unremarkable. Neuro: Awake, alert, oriented. Cranial nerves II through XII unremarkable. Cerebellum unremarkable. Motor and sensory unremarkable throughout. Exam nonfocal. Psychiatric: Mood and affect are appropriate. Normal thought process. Answering questions appropriately. Notes: *This patient was seen and evaluated during the 2019 SARS-CoV-2 novel coronavirus pandemic period. Community viral transmission is ongoing at time of this encounter and the emergency department is operating under pandemic response procedures. After discussion and examination the patient has agreed to Toradol injection and a 5 day supply of the his Oxycodone. The patient did have an MRI of bilateral hips on October 14, 2020 with Impression of 1. On the right, there is degenerative arthrosis of the hip with full-thickness acetabular chondromalacia (grad 4). High -grade femoral head articular cartilage wear (grade 3). Degenerative labral tearing. Underlying CAM type femoral acetabular impingement morphology. 2. Degenerative changes of left hip. 3. No acute pelvic fracture. 4. 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 5. Prior lower lumbar and lumbosacral fusion with hardware extending beyond the field of view. Reviewed with the patient of the need to use the Voltaren and Lidocaine cream, he stated they did not work. I have talked with the patient about today's findings, in addition to providing specific details for plan of care. Reassessment at the time of disposition demonstrates that the patient is in no acute distress. The patient is stable for discharge, counseling was provided and we discussed in great detail signs and symptoms that would prompt them to return to the Emergency Department. Medication, follow up and supportive care measures were reviewed and discussed. Voices understanding and is agreeable to plan of care. Denies any further questions or concerns at this time. Therapeutics: Toradol 60mg IM Prescription: Oxycodone 325/7.5 one BID for 5 days Impression: Chronic hip pain Plan: 1. You were evaluated today on an emergent basis. Your complaints of chronic hip pain and the fact that you did not get your hip injections from your Orthopedic today were treated with Toradol 60mg injection. You need to keep your appointment or manage your appointment with your Orthopedic if Dr. Campo is not going to prescribe you medication. I will give your 10 tabs in order for you to see your Orthopedic. Continue to use your Voltaren or Lidocaine cream. 2. You can alternate Tylenol and ibuprofen as needed for pain and fever management. 3. We encourage you to follow up with your primary care provider and/or recommended specialist in the next few days for re-evaluation and further care/management. 4. If your symptoms should worsen, new symptoms develop or any of the signs and symptoms we discussed should arise please return to the emergency room or call 911 (if needed). Definitive disposition and diagnosis as appropriate pending reevaluation and review of above. hips Pain Score (Numeric/FACES): 7 - Related Data Allergies Allergy/AdvReac Type Severity Reaction Status Date / Time No Known Allergies Allergy Verified 11/11/20 17:53 Home Meds: Home Meds oxyCODONE HCl/Acetaminophen [Oxycodone-Acetaminophn 7.5-325] 1 each PO ASDIRECTED PRN 11/11/20 [History] oxyCODONE HCl/Acetaminophen [Oxycodone-Acetaminophn 7.5-325] 1 each PO BID PRN 5 Days #10 tablet 11/11/20 [Rx] Past Medical History HEENT History: Reports: None Cardiovascular History: Reports: None, Hypertension Respiratory History: Reports: None, Pneumonia, Recurrent Gastrointestinal History: Reports: None Genitourinary History: Reports: None Neurological History: Reports: None Psychiatric History: Reports: None Endocrine/Metabolic History: Reports: None Hematologic History: Reports: None Immunologic History: Reports: None Oncologic (Cancer) History: Reports: None Dermatologic History: Reports: None - Infectious Disease History Infectious Disease History: Reports: None - Past Surgical History Head Surgeries/Procedures: Reports: None Other Musculoskeletal Surgeries/Procedures:: back sx Social & Family History - Family History Family Medical History: No Pertinent Family History - Tobacco Use Tobacco Use Status *Q: Former Tobacco User Used Tobacco, but Quit: Yes Month/Year Tobacco Last Used: 2020 - Caffeine Use Caffeine Use: Reports: Soda - Recreational Drug Use Recreational Drug Use: No ED ROS GENERAL - Review of Systems Review Of Systems: Comprehensive ROS is negative, except as noted in HPI. ED EXAM, GENERAL - Physical Exam Exam: See Below (See dictation) Course - Vital Signs Last Recorded V/S: Last Vital Signs Temp 98 F 11/11/20 19:34 Pulse 91 11/11/20 19:34 Resp 16 11/11/20 19:34 BP 105/78 11/11/20 19:34 Pulse Ox 95 11/11/20 19:34 - Orders/Labs/Meds Meds: Medications Discontinued Medications Generic Name Dose Route Start Last Admin Trade Name Freq PRN Reason Stop Dose Admin Ketorolac Tromethamine 60 mg 11/11/20 18:08 11/11/20 18:22 Ketorolac 60 Mg/2 Ml Sdv IM 11/11/20 18:09 60 mg ONETIME STA Administration Departure - Departure Time of Disposition: 19:07 Disposition: Home, Self-Care 01 Condition: Good Clinical Impression: Pain Hip pain, chronic Qualifiers: Laterality: bilateral Qualified Code(s): M25.551 - Pain in right hip - Discharge Information *PRESCRIPTION DRUG MONITORING PROGRAM REVIEWED*: Yes *COPY OF PRESCRIPTION DRUG MONITORING REPORT IN PATIENT YAW: Yes Prescriptions: oxyCODONE HCl/Acetaminophen [Oxycodone-Acetaminophn 7.5-325] 1 each PO BID PRN 5 Days #10 tablet PRN Reason: Pain (Severe 7-10) Instructions: Hip Pain Referrals: PCP,None [Primary Care Provider] - Forms: ED Department Discharge Additional Instructions: The following information is given to patients seen in the emergency department who are being discharged to home. This information is to outline your options for follow-up care. We provide all patients seen in our emergency department with a follow-up referral. The need for follow-up, as well as the timing and circumstances, are variable depending upon the specifics of your emergency department visit. If you don't have a primary care physician on staff, we will provide you with a referral. We always advise you to contact your personal physician following an emergency department visit to inform them of the circumstance of the visit and for follow-up with them and/or the need for any referrals to a consulting specialist. The emergency department will also refer you to a specialist when appropriate. This referral assures that you have the opportunity for follow-up care with a specialist. All of these measure are taken in an effort to provide you with optimal care, which includes your follow-up. Under all circumstances we always encourage you to contact your private physician who remains a resource for coordinating your care. When calling for follow-up care, please make the office aware that this follow-up is from your recent emergency room visit. If for any reason you are refused follow-up, please contact the [facility] Emergency Department at and asked to speak to the emergency department charge nurse. Plan: 1. You were evaluated today on an emergent basis. Your complaints of chronic hip pain and the fact that you did not get your hip injections from your Orthopedic today were treated with Toradol 60mg injection. You need to keep your appointment or manage your appointment with your Orthopedic if Dr. Hanks is not karlie gto prescribe you medication. I will give your 10 tabs in order for you to see your Orthopedic. Continue to use your Voltaren or Lidocaine cream. 2. You can alternate Tylenol and ibuprofen as needed for pain and fever management. 3. We encourage you to follow up with your primary care provider and/or recommended specialist in the next few days for re-evaluation and further care/management. 4. If your symptoms should worsen, new symptoms develop or any of the signs and symptoms we discussed should arise please return to the emergency room or call 911 (if needed). Sepsis Event Note (ED) - Evaluation Sepsis Screening Result: No Definite Risk - Focused Exam Vital Signs: Vital Signs Temp Pulse Resp BP Pulse Ox 11/11/20 19:34 98 F 91 16 105/78 95 11/11/20 17:55 99.0 F 109 H 20 98
[2020-11-11] MEDS ORDERED: Ketorolac 60 MG/2 ML SDV IM STA (18:08)
== END 2020-11-11 19:34 | disposition home or self-care (01) ==
LOC: MW.ED 17:41
DX: M25.552 Pain in left hip (principal); M25.551 Pain in right hip; G89.29 Other chronic pain; I10 Essential (primary) hypertension; Z87.891 Personal history of nicotine dependence
CPT/HCPCS: 99283; J1885; 96372

== ENCOUNTER 2020-11-23 11:57 | Emergency (ER) | payer MEDICAID ==
--- NOTE | 2020-11-23 12:22 | EDM.PDOC ---
ED HPI GENERAL MEDICAL PROBLEM - General Chief Complaint: General Stated Complaint: HIP PAIN Time Seen by Provider: 11/23/20 12:03 Source of Information: Reports: Patient History Limitations: Reports: No Limitations - History of Present Illness INITIAL COMMENTS - FREE TEXT/NARRATIVE: Patient is a 55-year-old male with a history of recurrent hip pain. Patient's had outpatient MRIs scheduled see orthopedics next month. Patient pain management doctor refused to see him as he get cortisone injections in his hip says at times had difficult time refilling his Percocets. Patient had no new falls or injuries but states that this pain has been too intense has not been controlled [id number] medication. Patient is working on trying to obtain a new pain management physician. Patient received Percocets here few days ago from the physician I saw him. hips Pain Score (Numeric/FACES): 7 - Related Data Allergies Allergy/AdvReac Type Severity Reaction Status Date / Time No Known Allergies Allergy Verified 11/11/20 17:53 Home Meds: Home Meds oxyCODONE HCl/Acetaminophen [Oxycodone-Acetaminophn 7.5-325] 1 each PO BID PRN 5 Days #10 tablet 11/11/20 [Rx] Acetaminophen/oxyCODONE [Percocet 325-5 MG] 1 each PO Q8HR PRN 3 Days #9 tab 11/23/20 [Rx] Past Medical History HEENT History: Reports: None Cardiovascular History: Reports: None, Hypertension Respiratory History: Reports: None, Pneumonia, Recurrent Gastrointestinal History: Reports: None Genitourinary History: Reports: None Neurological History: Reports: None Psychiatric History: Reports: None Endocrine/Metabolic History: Reports: None Hematologic History: Reports: None Immunologic History: Reports: None Oncologic (Cancer) History: Reports: None Dermatologic History: Reports: None - Infectious Disease History Infectious Disease History: Reports: None - Past Surgical History Head Surgeries/Procedures: Reports: None Other Musculoskeletal Surgeries/Procedures:: back sx Social & Family History - Family History Family Medical History: No Pertinent Family History - Caffeine Use Caffeine Use: Reports: Soda ED ROS GENERAL - Review of Systems Review Of Systems: See Below Constitutional: Reports: No Symptoms HEENT: Reports: No Symptoms Respiratory: Reports: No Symptoms Cardiovascular: Reports: No Symptoms Endocrine: Reports: No Symptoms GI/Abdominal: Reports: No Symptoms : Reports: No Symptoms Musculoskeletal: Reports: Joint Pain Skin: Reports: No Symptoms Neurological: Reports: No Symptoms Psychiatric: Reports: No Symptoms Hematologic/Lymphatic: Reports: No Symptoms Immunologic: Reports: No Symptoms ED EXAM, GENERAL - Physical Exam Exam: See Below Exam Limited By: No Limitations General Appearance: Alert, WD/WN, No Apparent Distress Respiratory/Chest: No Respiratory Distress GI/Abdominal: Normal Bowel Sounds, Soft, Non-Tender Extremities: Normal Inspection, Normal Range of Motion Neurological: Alert, Oriented, Normal Cognition Course - Vital Signs Last Recorded V/S: Last Vital Signs Temp 98 F 11/23/20 12:06 Pulse 92 11/23/20 12:06 Resp 16 11/23/20 12:06 BP 131/89 11/23/20 12:06 Pulse Ox 95 11/23/20 12:06 Departure - Departure Time of Disposition: 12:18 Disposition: Home, Self-Care 01 Condition: Good Clinical Impression: General medical exam - Discharge Information *PRESCRIPTION DRUG MONITORING PROGRAM REVIEWED*: Not Applicable *COPY OF PRESCRIPTION DRUG MONITORING REPORT IN PATIENT YAW: Not Applicable Instructions: Medical Screening Exam Referrals: Yolanda Molina MD [Primary Care Provider] - Additional Instructions: The following information is given to patients seen in the emergency department who are being discharged to home. This information is to outline your options for follow-up care. We provide all patients seen in our emergency department with a follow-up referral. The need for follow-up, as well as the timing and circumstances, are variable depending upon the specifics of your emergency department visit. If you don't have a primary care physician on staff, we will provide you with a referral. We always advise you to contact your personal physician following an emergency department visit to inform them of the circumstance of the visit and for follow-up with them and/or the need for any referrals to a consulting specialist. The emergency department will also refer you to a specialist when appropriate. This referral assures that you have the opportunity for follow-up care with a specialist. All of these measure are taken in an effort to provide you with optimal care, which includes your follow-up. Under all circumstances we always encourage you to contact your private physician who remains a resource for coordinating your care. When calling for follow-up care, please make the office aware that this follow-up is from your recent emergency room visit. If for any reason you are refused follow-up, please contact the [facility] Emergency Department at and asked to speak to the emergency department charge nurse. Please follow up with your primary care physician. If you do not have a primary care physician, see below: [facility] [address] [place] [id number] My [facility] [address] [place] [address] You are seen here for recurrent pain to your hip. You requested refills of your medication. We can give you a few days applied to you can follow-up with your primary care physician or pain management physician. We cannot prescribe you any long-term narcotics as it would be best coming from your primary physician. Please follow-up with your primary physician today. Sepsis Event Note (ED) - Evaluation Sepsis Screening Result: No Definite Risk - Focused Exam Vital Signs: Vital Signs Temp Pulse Resp BP Pulse Ox 11/23/20 12:06 98 F 92 16 131/89 95 - Assessment/Plan Plan: Patient is a 55-year-old male presents today for recurrent hip pain. We had discussion with patient about his refills. We told patient I can give him maybe 3-day course but he needs to try to follow-up with his primary care physician to get more long-term plan. Patient understands this and will attempt to make other accommodations possibly even in [place].
== END 2020-11-23 12:33 | disposition home or self-care (01) ==
LOC: MW.ED 11:57
DX: Z00.00 Encounter for general adult medical examination without abnormal findings (principal); I10 Essential (primary) hypertension
CPT/HCPCS: 99282; 99283

== ENCOUNTER 2020-11-29 13:11 | Emergency (ER) | payer MEDICAID ==
--- NOTE | 2020-11-29 13:20 | EDM.PDOC ---
ED HPI GENERAL MEDICAL PROBLEM - General Stated Complaint: HIP PAIN BOTH SIDES Time Seen by Provider: 11/29/20 13:20 Source of Information: Reports: Patient History Limitations: Reports: No Limitations - History of Present Illness INITIAL COMMENTS - FREE TEXT/NARRATIVE: HISTORY AND PHYSICAL: History of present illness: Patient is a 55-year-old male who presents to the emergency room with request for narcotic pain medication refill. Patient has been seeing pain management for acute on chronic hip pain. He has been seen multiple times through our emergency room requesting to refill his oxycodone. He was seen last on 11/23/2020 and was given a 3-day supply of oxycodone with the expectation that he would not return for additional medication refills. Patient states Dr. Lopez will not refill his Percocets and is trying to find a new pain management physician. He denies any new injury, trauma or falls. He is fully ambulatory without any deficits. He offers no systemic complaints. Review of systems: As per history of present illness and below otherwise all systems reviewed and negative. Past medical history: As per history of present illness and as reviewed below otherwise noncontr ibutory. Surgical history: As per history of present illness and as reviewed below otherwise noncontributory. Social history: See social history for further information Family history: As per history of present illness and as reviewed below otherwise noncontributory. Physical exam: General: Well developed and well nourished. Alert and orientated x 3. Nontoxic in appearance and in no acute distress. Vital signs are stable and have been reviewed by me. Nursing notes were reviewed. HEENT: Atraumatic, normocephalic, pupils equal and reactive bilaterally, negative for conjunctival pallor or scleral icterus, mucous membranes moist, trachea midline. No drooling or trismus noted. No meningeal signs. No hot potato voice noted. Lungs: Clear to auscultation bilaterally. No wheezes, rales, or rhonchi. Normal work of breathing, no accessory muscles used. Heart: S1S2, regular rate and rhythm without overt murmur, gallops, or rubs. No JVD. No peripheral edema Abdomen: Soft, nondistended, nontender. Normoactive bowel sounds. Negative for masses or costovertebral tenderness. Pelvis: Stable nontender. C-spine/Back: No pinpoint vertebral tenderness upon palpation. No crepitus, step-offs or obvious deformities. Patient is ambulatory into the emergency room without difficulty or deficit. Denies any urinary or fecal incontinence. Denies any numbness, tingling or saddle paresthesia. No concerns of serious infection, fracture or cord compression, or cauda equina syndrome. Deep tendon reflexes brisk bilaterally. Skin: Intact, warm, dry. No lesions or rashes noted. Hematologic: No petechiae or purpra. Mucosa appropriate color and normal nail bed color and refill. Extremities: Atraumatic, moves all extremities per self without difficulty or deficits, negative for cords or calf pain. Neurovascular unremarkable. Neuro: Awake, alert, oriented. Cranial nerves II through XII unremarkable. Cerebellum unremarkable. Motor and sensory unremarkable throughout. Exam nonfocal. Psychiatric: Mood and affect are appropriate. Normal thought process. Answering questions appropriately. Notes: *This patient was seen and evaluated during the 2019 SARS-CoV-2 novel coronavirus pandemic period. Community viral transmission is ongoing at time of this encounter and the emergency department is operating under pandemic response procedures. Patient has had recurrent hip pain, has had x-rays, CT and most recently and MRI. He is already aware that he cannot return to the emergency room to continue to refill his narcotics. He does need to follow-up with a primary care provider or line painting machine operator. I have talked with the patient about today's findings, in addition to providing specific details for plan of care. He states he has an appointment on 12/09/2020 for hip injections. Reassessment at the time of disposition demonstrates that the patient is in no acute distress. The patient is stable for discharge, counseling was provided and we discussed in great detail signs and symptoms that would prompt them to return to the Emergency Department. Medication, follow up and supportive care measures were reviewed and discussed. Voices understanding and is agreeable to plan of care. Denies any further questions or concerns at this time. Diagnostics: Declines Therapeutics: Lidoderm, Toradol IM Prescription: Lidoderm Patch, Diclofenac Impression: Encounter for pain medication refill Plan: 1. You were evaluated today on an emergent basis. You can not use the ED for refilling your Narcotic pain medications. YOU MUST find a line painting machine operator. 2. You can alternate Tylenol and Diclofenac as needed for pain and fever management. Diclofenac is an anti-inflammatory so please do not take any additional NSAIDs such as ibuprofen or Aleve. Lidoderm patches as neede d/directed. 3. We encourage you to follow up with your primary care provider and/or recommended specialist in the next few days for re-evaluation and further care/management. 4. If your symptoms should worsen, new symptoms develop or any of the signs and symptoms we discussed should arise please return to the emergency room or call 911 (if needed). Definitive disposition and diagnosis as appropriate pending reevaluation and review of above. Bilateral Hip Pain Score (Numeric/FACES): 10 - Related Data Allergies Allergy/AdvReac Type Severity Reaction Status Date / Time No Known Allergies Allergy Verified 11/29/20 13:19 Home Meds: Home Meds Diclofenac Sodium [Voltaren] 75 mg PO BIDMEALS PRN #30 tab.cr 11/29/20 [Rx] Lidocaine 5% [Lidoderm 5%] 1 patch TOP DAILY #15 patch 11/29/20 [Rx] Past Medical History HEENT History: Reports: None Cardiovascular History: Reports: Hypertension Respiratory History: Reports: Pneumonia, Recurrent Gastrointestinal History: Reports: None Genitourinary History: Reports: None Neurological History: Reports: None Psychiatric History: Reports: None Endocrine/Metabolic History: Reports: None Hematologic History: Reports: None Immunologic History: Reports: None Oncologic (Cancer) History: Reports: None Dermatologic History: Reports: None - Infectious Disease History Infectious Disease History: Reports: None - Past Surgical History Head Surgeries/Procedures: Reports: None Other Musculoskeletal Surgeries/Procedures:: back sx Social & Family History - Family History Family Medical History: No Pertinent Family History - Caffeine Use Caffeine Use: Reports: None Review of Systems - Review of Systems Review Of Systems: Comprehensive ROS is negative, except as noted in HPI. ED EXAM, GENERAL - Physical Exam Exam: See Below (See dictation) Course - Vital Signs Last Recorded V/S: Last Vital Signs Temp 97.6 F 11/29/20 13:22 Pulse 84 11/29/20 13:22 Resp 17 11/29/20 13:22 BP 122/83 11/29/20 13:22 Pulse Ox 99 11/29/20 13:22 - Orders/Labs/Meds Meds: Medications Discontinued Medications Generic Name Dose Route Start Last Admin Trade Name Freq PRN Reason Stop Dose Admin Ketorolac Tromethamine 60 mg 11/29/20 13:30 Ketorolac 60 Mg/2 Ml Sdv IM 11/29/20 13:31 ONETIME ONE Lidocaine 700 mg 11/29/20 13:30 Lidocaine 5% 700 Mg Patch TRDERM 11/29/20 13:31 ONETIME ONE Departure - Departure Time of Disposition: 13:34 Disposition: Home, Self-Care 01 Clinical Impression: Encounter for medication refill, Drug-seeking behavior Chronic hip pain Qualifiers: Laterality: bilateral Qualified Code(s): M25.551 - Pain in right hip - Discharge Information Prescriptions: Lidocaine 5% [Lidoderm 5%] 1 patch TOP DAILY #15 patch Diclofenac Sodium [Voltaren] 75 mg PO BIDMEALS PRN #30 tab.cr PRN Reason: Pain Instructions: Managing Pain Without Opioids Referrals: Yolanda Molina MD [Primary Care Provider] - Additional Instructions: The following information is given to patients seen in the emergency department who are being discharged to home. This information is to outline your options for follow-up care. We provide all patients seen in our emergency department with a follow-up referral. The need for follow-up, as well as the timing and circumstances, are variable depending upon the specifics of your emergency department visit. If you don't have a primary care physician on staff, we will provide you with a referral. We always advise you to contact your personal physician following an emergency department visit to inform them of the circumstance of the visit and for follow-up with them and/or the need for any referrals to a consulting specialist. The emergency department will also refer you to a specialist when appropriate. This referral assures that you have the opportunity for follow-up care with a specialist. All of these measure are taken in an effort to provide you with optimal care, which includes your follow-up. Under all circumstances we always encourage you to contact your private physician who remains a resource for coordinating your care. When calling for follow-up care, please make the office aware that this follow-up is from your recent emergency room visit. If for any reason you are refused follow-up, please contact the [facility] Emergency Department at and asked to speak to the emergency department charge nurse. [facility] [address] [place] [id number] [facility] [address] [place] [id number] Thank you for choosing the [facility] emergency department in [place] for your medical needs today. It was a pleasure caring for you. Today you were seen in the emergency department for medication refill/hip pain. 1. You were evaluated today on an emergent basis. You can not use the ED for refilling your Narcotic pain medications. YOU MUST find a line painting machine operator. 2. You can alternate Tylenol and Diclofenac as needed for pain and fever management. Diclofenac is an anti-inflammatory so please do not take any additional NSAIDs such as ibuprofen or Aleve. Lidoderm patches as needed/directed. 3. We encourage you to follow up with your primary care provider and/or recommended specialist in the next few days for re-evaluation and further care/management. 4. If your symptoms should worsen, new symptoms develop or any of the signs and symptoms we discussed should arise please return to the emergency room or call 911 (if needed). Sepsis Event Note (ED) - Focused Exam Vital Signs: Vital Signs Temp Pulse Resp BP Pulse Ox 11/29/20 13:22 97.6 F 84 17 122/83 99
[2020-11-29] MEDS ORDERED: Lidocaine 5% 700 MG Patch TRDERM ONE (13:30)
[2020-11-29] MEDS ORDERED: Ketorolac 60 MG/2 ML SDV IM ONE (13:30)
== END 2020-11-29 14:05 | disposition home or self-care (01) ==
LOC: MW.ED 13:11
DX: G89.29 Other chronic pain (principal); M25.551 Pain in right hip; I10 Essential (primary) hypertension; Z76.0 Encounter for issue of repeat prescription; Z76.5 Malingerer [conscious simulation]
CPT/HCPCS: 96372; 99283; A9270; J1885

== ENCOUNTER 2020-12-07 13:07 | Emergency (ER) | payer MEDICAID ==
[2020-12-07] MEDS ORDERED: Acetaminophen/oxyCODONE 325-5 MG Tab PO ONE (13:34)
--- NOTE | 2020-12-07 13:36 | EDM.PDOC ---
ED HPI GENERAL MEDICAL PROBLEM - General Chief Complaint: Lower Extremity Injury/Pain Stated Complaint: HIP PAIN Time Seen by Provider: 12/07/20 13:09 Source of Information: Reports: Patient History Limitations: Reports: No Limitations - History of Present Illness INITIAL COMMENTS - FREE TEXT/NARRATIVE: Patient is a 55-year-old male presents today for hip pain. Patient been seen multiple times for the past with a similar hip pain. Patient is not had any new injuries to the hip but is scheduled to get a cortisone injection shots this . Patient states that he been trying Tylenol without much relief and ran out of his narcotics. Patient has no urinary incontinence saddle anesthesia or other symptoms. Bilateral Hips Pain Score (Numeric/FACES): 7 - Related Data Allergies Allergy/AdvReac Type Severity Reaction Status Date / Time No Known Allergies Allergy Verified 12/07/20 13:18 Home Meds: Home Meds Diclofenac Sodium [Voltaren] 75 mg PO BIDMEALS PRN #30 tab.cr 11/29/20 [Rx] Lidocaine 5% [Lidoderm 5%] 1 patch TOP DAILY #15 patch 11/29/20 [Rx] Past Medical History HEENT History: Reports: None Cardiovascular History: Reports: Hypertension Respiratory History: Reports: Pneumonia, Recurrent Gastrointestinal History: Reports: None Genitourinary History: Reports: None Neurological History: Reports: None Psychiatric History: Reports: None Endocrine/Metabolic History: Reports: None Hematologic History: Reports: None Immunologic History: Reports: None Oncologic (Cancer) History: Reports: None Dermatologic History: Reports: None - Infectious Disease History Infectious Disease History: Reports: None - Past Surgical History Head Surgeries/Procedures: Reports: None Other Musculoskeletal Surgeries/Procedures:: back sx Social & Family History - Family History Family Medical History: No Pertinent Family History - Caffeine Use Caffeine Use: Reports: None - Recreational Drug Use Recreational Drug Use: No Review of Systems - Review of Systems Review Of Systems: See Below Constitutional: Reports: No Symptoms Eyes: Reports: No Symptoms Ears: Reports: No Symptoms Nose: Reports: No Symptoms Mouth/Throat: Reports: No Symptoms Respiratory: Reports: No Symptoms Cardiovascular: Reports: No Symptoms GI/Abdominal: Reports: No Symptoms Genitourinary: Reports: No Symptoms Musculoskeletal: Reports: Joint Pain Skin: Reports: No Symptoms Neurological: Reports: No Symptoms Psychiatric: Reports: No Symptoms ED EXAM, GENERAL - Physical Exam Exam: See Below Exam Limited By: No Limitations General Appearance: Alert, WD/WN, No Apparent Distress Respiratory/Chest: No Respiratory Distress Cardiovascular: Normal Peripheral Pulses Extremities: Normal Inspection Neurological: Alert, Oriented. No: Normal Gait Course - Vital Signs Last Recorded V/S: Last Vital Signs Temp 97.6 F 12/07/20 13:18 Pulse 83 12/07/20 13:18 Resp 16 12/07/20 13:18 BP 124/86 12/07/20 13:18 Pulse Ox 98 12/07/20 13:18 - Orders/Labs/Meds Meds: Medications Discontinued Medications Generic Name Dose Route Start Last Admin Trade Name Freq PRN Reason Stop Dose Admin Oxycodone/Acetaminophen 1 tab 12/07/20 13:34 12/07/20 13:39 Acetaminophen/Oxycodone 325-5 Mg Tab PO 12/07/20 13:35 1 tab ONETIME ONE Administration Departure - Departure Time of Disposition: 13:45 Disposition: Home, Self-Care 01 Condition: Good Clinical Impression: Hip pain - Discharge Information *PRESCRIPTION DRUG MONITORING PROGRAM REVIEWED*: Not Applicable *COPY OF PRESCRIPTION DRUG MONITORING REPORT IN PATIENT YAW: Not Applicable Instructions: Hip Pain Referrals: Yolanda Molina MD [Primary Care Provider] - Forms: ED Department Discharge Additional Instructions: The following information is given to patients seen in the emergency department who are being discharged to home. This information is to outline your options for follow-up care. We provide all patients seen in our emergency department with a follow-up referral. The need for follow-up, as well as the timing and circumstances, are variable depending upon the specifics of your emergency department visit. If you don't have a primary care physician on staff, we will provide you with a referral. We always advise you to contact your personal physician following an emergency department visit to inform them of the circumstance of the visit and for follow-up with them and/or the need for any referrals to a consulting specialist. The emergency department will also refer you to a specialist when appropriate. This referral assures that you have the opportunity for follow-up care with a specialist. All of these measure are taken in an effort to provide you with optimal care, which includes your follow-up. Under all circumstances we always encourage you to contact your private physician who remains a resource for coordinating your care. When calling for follow-up care, please make the office aware that this follow-up is from your recent emergency room visit. If for any reason you are refused follow-up, please contact the [facility] Emergency Department at and asked to speak to the emergency department charge nurse. Please follow up with your primary care physician. If you do not have a primary care physician, see below: [facility] [id number], [place] [address] [facility] [address] [place] [address] Continue to follow-up this for your injections and possible cortisone. That should help out with your pain. You have any increased pain weakness numbness urinary symptoms or pain or numbness your tailbone area please return to the ED immediately. Otherwise continue to follow-up with your primary physician and schedule appointments. Sepsis Event Note (ED) - Evaluation Sepsis Screening Result: No Definite Risk - Focused Exam Vital Signs: Vital Signs Temp Pulse Resp BP Pulse Ox 12/07/20 13:18 97.6 F 83 16 124/86 98 - Assessment/Plan Plan: Patient is a 55-year-old male who presents today for hip pain. Patient has had hip pain for the past month schedule had a cortisone injection. Patient was told today that we cannot refill his narcotics. However did get give the patient 1 narcotic in it for him to take when he gets home as he drove here. Patient otherwise understands and will continue to try to follow-up this for pain management for possible cortisone injection.
== END 2020-12-07 13:53 | disposition home or self-care (01) ==
LOC: MW.ED 13:07
DX: M25.552 Pain in left hip (principal); M25.551 Pain in right hip; I10 Essential (primary) hypertension
CPT/HCPCS: 99283; A9270

== ENCOUNTER 2021-02-13 19:17 | Emergency (ER) | payer MEDICAID ==
[2021-02-13] MEDS ORDERED: traMADol 50 MG Tab PO ONE (20:10)
[2021-02-13] MEDS ORDERED: Cyclobenzaprine 10 MG Tab PO ONE (20:10)
[2021-02-13] MEDS ORDERED: Ketorolac 15 MG/ML SDV IM ONE (20:11)
--- NOTE | 2021-02-13 20:19 | EDM.PDOC ---
ED HPI GENERAL MEDICAL PROBLEM - General Chief Complaint: Back Pain or Injury Stated Complaint: BACK PAIN Time Seen by Provider: 02/13/21 20:01 - History of Present Illness INITIAL COMMENTS - FREE TEXT/NARRATIVE: HISTORY AND PHYSICAL: History of present illness: This is a 55-year-old gentleman with history significant hypertension as well as chronic back pain requiring surgery several years ago who presents ER today secondary to acute exacerbation of his chronic back pain. Patient reports that he does see his primary care physician as well as has a pain specialist who has assisted him with his chronic pain in the past but he reports he has had a difficult time getting in to see her secondary to miscommunications with the office staff. Patient denies any new symptoms. Patient has any recent fevers, shakes, chills, nausea, vomiting, diarrhea, dysuria, frequency, urgency, chest pain, shortness of breath. Patient denies any loss of bowel or bladder function. Patient denies any weakness to his upper or lower extremities. Patient denies any paresthesias to his perineal or perirectal region. Patient denies any difficulty ambulation. Patient reports that the only thing he is taking at home right now is ibuprofen for his pain. Review of systems: As per history of present illness and below otherwise all systems reviewed and negative. Past medical history: As per history of present illness and as reviewed below otherwise noncontributory. Surgical history: As per history of present illness and as reviewed below otherwise noncontributory. Social history: No reported history of drug abuse. Family history: As per history of present illness and as reviewed below otherwise noncontributory. Physical exam: This patient was seen and evaluated during the 2019 SARS-CoV-2 novel coronavirus pandemic period. Community viral transmission is ongoing at time of this encounter and the emergency department is operating under pandemic response procedures. Constitutional: Patient is oriented to person, place, and time. Appears well- developed and well-nourished. No distress. HEENT: Moist mucous membranes Head: Normocephalic and atraumatic Eyes: Right eye exhibits no discharge. Left eye exhibits no discharge. No scleral icterus Neck: Normal range of motion. No tracheal deviation present. Cardiovascular: Normal rate and regular rhythm. Pulmonary: Effort normal, no respiratory distress. Abdominal: No distention Musculoskeletal: Normal range of motion Neurologic: Alert and oriented to person, place and time. Skin: [place], warm and dry. Psychiatric: Normal mood and affect. Behavior is normal. Judgment and thought content normal. Nursing note and vital signs have been reviewed Neuro: A&Ox3. Cranial nerves II-XII grossly intact, 5/5 strength to bilateral upper and lower extremities, sensation intact to bilateral upper and lower extremities, no nystagmus, PERRLA, EOMI, normal speech, proprioception intact to bilateral lower extremities, normal finger to nose test, gait normal. Patient was tenderness palpation to his lower back bilaterally. Diagnostics: [] Therapeutics: Toradol 50 mg IM, Flexeril 10 mg p.o., Ultram 10 mg p.o. Assessment and plan: 55-year-old gentleman with history significant for chronic lower back pain presents with an acute exacerbation of his chronic lower back pain. Patient reports that this is typical pain but he has been unable to see his pain specialist and primary care doctor acutely for this discomfort. Patient be treated in the ED appropriate for his pain will be given a prescription for Flexeril and Ultram and instructed to take ibuprofen at home until he is able to see his pain specialist. Patient is neurologically intact without any evidence of cord injury or cord compression cauda equina syndrome. Reassessment at the time of disposition demonstrates that the patient is in no acute distress. The patient has remained stable throughout the entire ED visit and is without objective evidence for acute process requiring urgent intervention or hospitalization. The patient is stable for discharge, counseling is provided as documented above, discussed symptomatic treatment and specific conditions for return. I have spoken with the patient/caregiver and discussed todays findings, in addition to providing specific details for the plan of care. Questions are answered and there is agreement with the plan. Definitive disposition and diagnosis as appropriate pending reevaluation and review of above. Bilateral Sacral Pain Score (Numeric/FACES): 8 - Related Data Allergies Allergy/AdvReac Type Severity Reaction Status Date / Time No Known Allergies Allergy Verified 12/07/20 13:18 Home Meds: Home Meds Diclofenac Sodium [Voltaren] 75 mg PO BIDMEALS PRN #30 tab.cr 11/29/20 [Rx] Lidocaine 5% [Lidoderm 5%] 1 patch TOP DAILY #15 patch 11/29/20 [Rx] Cyclobenzaprine [Flexeril] 10 mg PO TID PRN #20 tab 02/13/21 [Rx] Ibuprofen 600 mg PO Q6HR PRN #30 tablet 02/13/21 [Rx] traMADol [Ultram] 50 mg PO Q6H PRN #12 tab 02/13/21 [Rx] Past Medical History - Past Health History Medical/Surgical History: Denies Medical/Surgical History HEENT History: Reports: None Cardiovascular History: Reports: Hypertension Respiratory History: Reports: Pneumonia, Recurrent Gastrointestinal History: Reports: None Genitourinary History: Reports: None Neurological History: Reports: None Psychiatric History: Reports: None Endocrine/Metabolic History: Reports: None Hematologic History: Reports: None Immunologic History: Reports: None Oncologic (Cancer) History: Reports: None Dermatologic History: Reports: None - Infectious Disease History Infectious Disease History: Reports: None - Past Surgical History Head Surgeries/Procedures: Reports: None Other Musculoskeletal Surgeries/Procedures:: back sx Social & Family History - Family History Family Medical History: No Pertinent Family History - Tobacco Use Tobacco Use Status *Q: Never Tobacco User - Caffeine Use Caffeine Use: Reports: None - Recreational Drug Use Recreational Drug Use: No ED ROS GENERAL - Review of Systems Review Of Systems: See Below ED EXAM, GENERAL - Physical Exam Exam: See Below Course - Vital Signs Last Recorded V/S: Last Vital Signs Temp 98.9 F 02/13/21 20:01 Pulse 97 02/13/21 20:01 Resp 18 02/13/21 20:01 BP 133/91 H 02/13/21 20:01 Pulse Ox 98 02/13/21 20:01 - Orders/Labs/Meds Meds: Medications Discontinued Medications Generic Name Dose Route Start Last Admin Trade Name [place] PRN Reason Stop Dose Admin Cyclobenzaprine HCl 10 mg 02/13/21 20:10 Cyclobenzaprine 10 Mg Tab PO 02/13/21 20:11 ONETIME ONE Ketorolac Tromethamine 15 mg 02/13/21 20:11 Ketorolac 15 Mg/Ml Sdv IM 02/13/21 20:12 ONETIME ONE Tramadol HCl 50 mg 02/13/21 20:10 Tramadol 50 Mg Tab PO 02/13/21 20:11 ONETIME ONE Departure - Departure Time of Disposition: 20:17 Disposition: Home, Self-Care 01 Condition: Good Clinical Impression: Back pain Qualifiers: Back pain location: low back pain Chronicity: acute Back pain laterality: bilateral Sciatica presence: without sciatica Qualified Code(s): M54.5 - Low back pain - Discharge Information Instructions: Acute Back Pain, Adult, Chronic Back Pain, Pain Medicine Instructions, [id number] Referrals: Yolanda Molina MD [Primary Care Provider] - Additional Instructions: You were seen and evaluated in the ER today secondary to an acute exacerbation of your chronic lower back pain. He will be given a short course prescription for Flexeril, Ultram, and ibuprofen until you are able to see your family doctor and/or pain specialist. Please return to the ER if you experience any new or concerning symptoms. The following information is given to patients seen in the emergency department who are being discharged to home. This information is to outline your options for follow-up care. We provide all patients seen in our emergency department with a follow-up referral. The need for follow-up, as well as the timing and circumstances, are variable depending upon the specifics of your emergency department visit. If you don't have a primary care physician on staff, we will provide you with a referral. We always advise you to contact your personal physician following an emergency department visit to inform them of the circumstance of the visit and for follow-up with them and/or the need for any referrals to a consulting specialist. The emergency department will also refer you to a specialist when appropriate. This referral assures that you have the opportunity for follow-up care with a specialist. All of these measure are taken in an effort to provide you with optimal care, which includes your follow-up. Under all circumstances we always encourage you to contact your private physician who remains a resource for coordinating your care. When calling for follow-up care, please make the office aware that this follow-up is from your recent emergency room visit. If for any reason you are refused follow-up, please contact the [facility] Emergency Department at and asked to speak to the emergency department charge nurse. [facility] - [facility] [address] [place] [id number] [facility] [address] [place] [id number] Sepsis Event Note (ED) - Evaluation Sepsis Screening Result: No Definite Risk - Focused Exam Vital Signs: Vital Signs Temp Pulse Resp BP Pulse Ox 02/13/21 20:01 98.9 F 97 18 133/91 H 98
== END 2021-02-13 21:07 | disposition home or self-care (01) ==
LOC: MW.ED 19:17
DX: M54.5 Low back pain (principal); I10 Essential (primary) hypertension
CPT/HCPCS: 96372; 99283; A9270; J1885

== ENCOUNTER 2021-03-30 16:54 | Emergency (ER) | payer MEDICAID | END 2021-03-30 17:16 | disposition left against medical advice (07) | LOC: MW.ED 16:54 | DX: Z53.21 Procedure and treatment not carried out due to patient leaving prior to being seen by health care provider (principal) ==

== ENCOUNTER 2024-10-04 06:18 | Emergency (ER) | payer MEDICAID ==
[2024-10-04] MEDS ORDERED: Sodium Chloride 0.9% 20 ML SDV IV PRN (06:36)
[2024-10-04] MEDS ORDERED: Sodium Chloride 0.9% 10 ML Syringe FLUSH PRN (06:36)
[2024-10-04] MEDS ORDERED: Sodium Chloride 0.9% 2.5 ML Syringe FLUSH PRN (06:36)
[2024-10-04] MEDS: chlordiazePOXIDE 25 MG Cap PO ONE (07:45)
[2024-10-04 08:00] LABS: BASOPHILS ABSOLUTE AUTO 0.03 K/uL (0.00-0.20); BASOPHILS PERCENT AUTO 0.5 % (0.0-1.0); EOSINOPHILS ABSOLUTE AUTO 0.06 K/uL (0.00-0.45); HEMATOCRIT 40.5 % (42.0-52.0); HEMOGLOBIN 14.3 g/dL (14.0-18.0); IMMATURE GRAN ABSOLUTE AUTO 0.01 K/uL (0.00-0.05); IMMATURE GRAN PERCENT AUTO 0.2 % (0.0-0.4); MEAN CORPUSCULAR HEMOGLOBIN 33.6 pg (28.0-32.0); MEAN CORPUSCULAR HGB CONC 35.3 g/dL (32.0-36.0); MEAN CORPUSCULAR VOLUME 95.3 fL (83.0-99.0); MEAN PLATELET VOLUME 10.7 fL (9.4-12.4); MONOCYTES ABSOLUTE AUTO 0.46 K/uL (0.00-0.80); MONOCYTES PERCENT AUTO 7.5 % (0.0-8.0); NEUTROPHILS ABSOLUTE AUTO 3.51 K/uL (1.80-7.70); NEUTROPHILS PERCENT AUTO 56.8 % (41.0-71.0); PLATELET COUNT,PLT 137 K/uL (150-400); RED BLOOD CELL COUNT 4.25 M/uL (4.52-5.90); WHITE BLOOD CELL COUNT,WBC 6.17 K/uL (3.9-11.3)
[2024-10-04 08:11] LABS: INR 1.2 (0.86-1.11); PTT,PARTIAL THROMBOPLSTIN TIME 29.8 SEC (23.9-30.7)
[2024-10-04 08:25] LABS: LACTIC ACID 2.2 mmol/L (0.4-2.0)
[2024-10-04 08:29] LABS: A/G RATIO 0.8 (0.9-1.6); ALBUMIN 3.4 g/dL (3.4-5.0); BILIRUBIN TOTAL 0.9 mg/dL (0.2-1.0); CALCIUM 8.7 mg/dL (8.5-10.1); CREATININE 1.3 mg/dL (0.8-1.3); EST CRCL DRUG DOSING (CG) 63.61 mL/min; MAGNESIUM 1.6 mg/dL (1.8-2.4); POTASSIUM,K 3.1 mmol/L (3.5-5.1); PROTEIN TOTAL,TP 7.6 g/dL (6.4-8.2)
== END 2024-10-04 10:05 | disposition home or self-care (01) ==
LOC: MW.ED 06:18
DX: F10.10 Alcohol abuse, uncomplicated (principal); I10 Essential (primary) hypertension
CPT/HCPCS: 36415; 70450; 71045; 72125; 80053; 80307; 82550; 83605; 83735; 83880; 84484; 85025; 85610; 85730; 99285; A9270